=== PATIENT | male | born 1975 | race Hispanic/Latino ===

== ENCOUNTER 2021-03-26 18:00 | Emergency (ER) | payer SELFPAY ==
[~2021-03-26] VITALS: Ht 167.6 cm; Wt 72.6 kg
== END 2021-03-26 18:34 | disposition home or self-care (01) ==
LOC: ER 18:15
DX: R50.9 Fever, unspecified (principal); R06.02 Shortness of breath; R05 Cough; J40 Bronchitis, not specified as acute or chronic
CPT/HCPCS: 99282